=== PATIENT | female | born 1990 | race Caucasian/White ===

== ENCOUNTER → 2020-05-14 17:17 | Outpatient (CLI) | payer OTHER, SELFPAY ==
[2020-05-14 20:54] LABS: Urine N gonorrhoeae NOT DETECTED
[2020-05-14 21:00] LABS: Urine Chlamydia NOT DETECTED
== END ==
PROVIDERS: PCP Family Medicine; Visit Provider Specialist
DX: Z34.81 Encounter for supervision of other normal pregnancy, first trimester (principal); Z3A.09 9 weeks gestation of pregnancy
CPT/HCPCS: 87491; 87591

== ENCOUNTER → 2020-07-16 15:48 | Outpatient (CLI) | payer OTHER, SELFPAY ==
[2020-07-16 16:12] LABS: Add Manual Diff / Slide Review NO; Basophils Absolute Auto 100 /uL (0-100); Basophils Percent Auto 0.7 % (0-2); Eosinophils Absolute Auto 100 /uL (0-450); Eosinophils Percent Auto 1.1 % (2-4); Hemoglobin 12.6 g/dL (12.0-16.0); Lymphocytes Absolute Auto 1500 /uL (1100-4500); Lymphocytes Percent Auto 13.3 % (25-40); Mean Corpuscular HGB Conc 33.1 % (30-36); Mean Corpuscular Hemoglobin 30.5 PG (26-34); Mean Corpuscular Volume 91.9 fL (80-100); Monocytes Absolute Auto 1000 /uL (0-900); Monocytes Percent Auto 8.9 % (3-14); Neutrophils Absolute Auto 8600 /uL (1500-7000); Platelet Count 407 X10^3/uL (150-400); Red Blood Cell Count 4.14 X10^6/uL (4.0-5.2); Red Cell Distribution Width 13.4 % (11.6-14.8); White Blood Cell Count 11.3 X10^3/uL (4.5-11.0)
[2020-07-16 20:07] LABS: Appearance Urine UA CLEAR; Bilirubin Urine UA NEGATIVE (NEGATIVE); Color Urine UA YELLOW; Glucose Urine UA NEGATIVE (Negative); Ketones Urine UA NEGATIVE (NEGATIVE); Leukocyte Esterase Urine UA NEGATIVE (NEGATIVE); Nitrite Urine UA NEGATIVE (Negative); Occult Blood Urine UA NEGATIVE (Negative); Protein Urine UA NEGATIVE (Negative); Urobilinogen Urine UA 0.2 E.U./dL (0.2)
[2020-07-17 04:36] LABS: RPR Screen Non Reactive (Non Reactive)
[2020-07-17 07:17] LABS: Varicella IgG Antibody 958 index (Immune >165)
[2020-07-19 17:17] LABS: Rubella Antibody IgG 36.7 IU/mL (>15)
[2020-07-19 17:30] LABS: HIV 1 & 2 Ab/Ag 4th Gen Combo NEGATIVE (NEGATIVE); Hep C Virus Ab w/Reflex Quant NEGATIVE s/c (NEGATIVE); Hepatitis B Surface Antigen NEGATIVE s/c (NEGATIVE)
[2020-07-19 20:11] LABS: AFP, Serum 58.3 ng/mL (.); Calc Gestational Age Ultrasound (.); Estriol, Free 1.35 ng/mL (.); Inhibin A, MoM 0.82 (.); Maternal Ethnicity Caucasian (.); Maternal Weight 146 lbs (.); Number of Fetuses No (.); OSBR Risk 1 IN 4529 (.); Results Report (.); Test Results *Screen Negative* (.); hCG, MoM 0.97 (.); hCG, Serum 28239 mIU/mL (.)
== END ==
PROVIDERS: PCP Family Medicine; Referring Provider Specialist; Visit Provider Specialist
DX: Z34.82 Encounter for supervision of other normal pregnancy, second trimester (principal); Z3A.18 18 weeks gestation of pregnancy
CPT/HCPCS: 36415; 80055; 81003; 82105; 82677; 84702; 86336; 86787; 86803; 86850; 86900; 86901; 87086; 87389

== ENCOUNTER → 2020-08-14 07:44 | Outpatient (CLI) | payer OTHER, SELFPAY ==
--- NOTE | 2020-08-14 07:45 | DI.US.S_ITS ---
PROCEDURE: US OB >= 14 WEEKS FETUS INDICATIONS: 20 week anatomy scan OUTSIDE/PRIOR DATING DATA: Last menstrual period (LMP): 03/12/20. LMP-based estimated date of delivery (FIDENCIO): 12/17/20 . First dating scan (date and location): 05/03/20, by Dr. Pedersen . Estimated date of delivery (FIDENCIO) from first dating scan: 12/19/20 . TECHNIQUE: Real-time scanning was performed of the fetus, with image documentation and biometric measurements. Endovaginal scanning: Not needed COMPARISON: [facility], , OB >= 14 WEEKS FETUS, 07/16/2020, 15:37. FINDINGS: General: A single living intrauterine gestation is present. Presentation: Breech. Placenta: Placental position is anterior , without previa. Amniotic fluid index: 15.2 cm, normal range is 5-24 cm. heart rate: 160 beats per minute. Maternal cervical canal: 3.9 cm long. Normal lower limit is 2.5 cm. Report any funneling of internal cervical os: % of canal length, shape (U or V), width or any U-shaped funneling. biometrics: Biparietal diameter: 5.2 cm, 21 weeks 6 days Head circumference: 19.6 cm, 21 weeks 6 days Abdominal circumference: 17.0 cm, 22 weeks 0 days Femur length: 3.7 cm, 21 weeks 5 days Estimated gestational age from initial scan: 21 weeks 6 days Composite gestational age from present scan: 21 weeks 6 days Estimated weight and percentile: 457 g, 44th percentile Measurement variability for biometric dating: +/- 7 days from 14 weeks to 15 weeks 6 days gestation, +/- 10 days from 16 weeks to 21 weeks 6 days gestation, +/- 2 weeks from 22 weeks to 27 weeks 6 days gestation, +/- 3 weeks for 28 weeks gestation or later. weight reference: 4500 g or EFW >90/95% is considered macrosomia or large for gestational age. EFW <10% is small for gestational age. EFW 5% or less is considered intra-uterine growth restriction. Anatomic survey: Neuro: Ventricles are non-dilated at less than 10 mm. Cisterna magna is normal at 3-11 mm. Cerebellum is normal in size and morphology. Nuchal skin fold: Normal at less than 6 mm between 14-21 weeks gestational age. Face: Nose and lips, facial profile are normal. Spine: No evidence for spina bifida. Heart: 4-chambered heart is present, with normal ventricular outflow tracts. Diaphragm: Diaphragm is intact. Stomach: Left-sided stomach is present. Kidneys: No hydronephrosis. Normal is less than 5 mm in 2nd trimester, less than 7 mm in 3rd trimester. Cord: 3-vessel cord has orthotopic insertion. Bladder: Normal in size. Extremities: All 4 extremities identified. IMPRESSION: Breech presentation, appropriate interval growth, no anomaly seen. The delivery date is projected to be centered on 12/19/20, +/-5 days. Dictated by: Lionel Norton M.D. on 08/14/2020 at 12:28 Approved by: Lionel Norton M.D. on 08/14/2020 at 12:36
== END ==
PROVIDERS: PCP Family Medicine; Referring Provider Specialist; Visit Provider Specialist
DX: Z34.82 Encounter for supervision of other normal pregnancy, second trimester (principal); Z3A.21 21 weeks gestation of pregnancy
CPT/HCPCS: 76811

== ENCOUNTER → 2020-10-10 11:35 | Outpatient (CLI) | payer OTHER, SELFPAY ==
[2020-10-10 14:17] LABS: Hemoglobin 10.8 g/dL (12.0-16.0)
[2020-10-10 14:34] LABS: GTT (PREG) 1 Hour PP 50gm Dose 103 mg/dL (76-139)
== END ==
PROVIDERS: Referring Provider Specialist; Visit Provider Specialist
DX: Z34.82 Encounter for supervision of other normal pregnancy, second trimester (principal); Z3A.24 24 weeks gestation of pregnancy
CPT/HCPCS: 36415; 82950; 85014; 85018

== ENCOUNTER → 2020-11-16 15:31 | Outpatient (CLI) | payer OTHER, SELFPAY ==
[2020-11-17 14:08] LABS: Strep Grp B PCR NEG for Grp B Strep
== END ==
PROVIDERS: Visit Provider Specialist
DX: Z34.03 Encounter for supervision of normal first pregnancy, third trimester (principal); Z3A.36 36 weeks gestation of pregnancy
CPT/HCPCS: 87653

== ENCOUNTER 2020-12-17 16:14 | Inpatient (IN) | payer OTHER, SELFPAY ==
[2020-12-17] MEDS: LACTATED RINGERS 1,000 ML 100 ML IV ×2 (17:00→18:27)
[2020-12-17 17:43] VITALS: BP 134/67
[2020-12-17 17:44] LABS: Add Manual Diff / Slide Review NO; Basophils Absolute Auto 100 /uL (0-100); Basophils Percent Auto 0.6 % (0-2); Eosinophils Absolute Auto 0 /uL (0-450); Eosinophils Percent Auto 0.2 % (2-4); Hematocrit 34.2 % (36-46); Hemoglobin 11.2 g/dL (12.0-16.0); Lymphocytes Absolute Auto 1500 /uL (1100-4500); Lymphocytes Percent Auto 8.1 % (25-40); Mean Corpuscular HGB Conc 32.8 % (30-36); Mean Corpuscular Hemoglobin 26.3 PG (26-34); Mean Corpuscular Volume 80.3 fL (80-100); Monocytes Absolute Auto 1700 /uL (0-900); Monocytes Percent Auto 9.5 % (3-14); Neutrophils Absolute Auto 14900 /uL (1500-7000); Neutrophils Percent Auto 81.6 % (50-75); Platelet Count 495 X10^3/uL (150-400); Red Blood Cell Count 4.26 X10^6/uL (4.0-5.2); Red Cell Distribution Width 15.5 % (11.6-14.8); White Blood Cell Count 18.3 X10^3/uL (4.5-11.0)
[2020-12-17 18:35] LABS: COVID19 - ADMIT (NP swab/PCR) Negative (Negative)
--- NOTE | 2020-12-17 19:02 | PM.OBHP.1 ---
OB HPI Date/Time Date of admission: 12/17/20 Date Patient Seen: 12/17/20 Time Patient Seen: 19:02 History of Present Condition Chief complaint: : 3 Para: 0 Estimated Date of Delivery: 12/17/20 Estimated Gestational Age (weeks): 40 Narrative: Cinda Douglas is a 30 year old female admitted in active labor History of Present care: good care, initiated at week # (13), number of visits (12) and pounds weight gain (53) Dating criteria: LMP confirmed by 1st trimester US Ultrasounds: normal mid trimester US Obstetrical complications: none Medical complications: none Preadmission Labs Blood type: A (+) positive -: Antibody screen: negative, GBS status: negative, HBsAG: negative, HIV: negative and RPR/VDLR: negative -: Chlamydia screen: not detected and Gonorrhea screen: not detected -: Rubella: immune and Varicella: immune HCAB: negative Quad screen: Normal 1 hr GTT: 103 Evaluation Evaluation Baseline heart rate: 135 Variability: Moderate (11-25) monitor accelerations: Present monitor decelerations: Absent Contraction Frequency (minutes): 3 Uterine Contraction Intensity: Strong/Firm Category of Tracing: Reactive Status: Category l Cervical dilation (cm): 4 Cervical effacement (%): 80 station: -2 Laboratory results: Laboratory Tests 12/17/20 12/17/20 12/17/20 16:22 17:00 17:00 WBC 18.3 H RBC 4.26 Hgb 11.2 L Hct 34.2 L MCV 80.3 MCH 26.3 MCHC 32.8 RDW 15.5 H Plt Count 495 H Neut % (Auto) 81.6 H Lymph % (Auto) 8.1 L [place] % (Auto) 9.5 Eos % (Auto) 0.2 L Baso % (Auto) 0.6 Neut # (Auto) 65615 H Lymph # (Auto) 1500 [place] # (Auto) 1700 H Eos # (Auto) 0 Baso # (Auto) 100 SARS-CoV-2 (PCR) Negative Blood Type A Positive Antibody Screen Negative PFSH Medical History (Updated 06/05/20 @ 10:59 by Miracle Tinoco RN) Eczema (2004) Missed ab (~11/2019) Surgical History (Updated 03/04/20 @ 09:25 by Miracle Tinoco RN) Anesthesia Status post appendectomy (09/14/07) [place] teeth extracted Family History (Updated 06/05/20 @ 11:09 by Miracle Tinoco, OLIVER) Father No problems noted. Mother Prior miscarriage with , antepartum Grandfather Lung cancer Smoker Grandmother No problems noted. 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) current occupational exposures/hazards: No special virgilio needs: No Smoking Status: Never smoker second hand exposure: No alcohol intake: former (pre-) substance use type: marijuana (former - stopped) Meds Home Medications and Allergies Home Medications Medication Instructions Recorded Confirmed Type prenat.vits,catarina,[id number] 1 tab PO DAILY 11/16/19 12/17/20 History ondansetron 4 mg disintegrating 4 mg PO Q8H PRN #30 tab 10/29/20 12/13/20 Rx tablet Allergies Allergy/AdvReac Type Severity Reaction Status Date / Time No Known Drug Allergies Allergy Verified 12/17/20 17:50 Review of Systems Review of Systems Narrative: Patient denies headaches, scotomata, epigastric pain. Good movement. No leakage of fluid. ROS: Yes All systems reviewed with the patient and are negative except as otherwise documented Exam Vital Signs (past 8 hours): Blood pressure 104/58, pulse 104 temperature 36? point- 12/17/20 17:43 Blood Pressure 134/67 Narrative Exam Narrative: HEENT exam within normal limits. Lungs are clear to auscultation percussion. Heart is regular rate and rhythm no S3-S4 or murmurs. Abdomen is gravid. Fetus is vertex. Extremities without edema and nontender. Objective Labs Result Diagrams: 12/17/20 17:00 Labs: Laboratory Results - last 24 hr 12/17/20 12/17/20 12/17/20 16:22 17:00 17:00 WBC 18.3 H RBC 4.26 Hgb 11.2 L Hct 34.2 L MCV 80.3 MCH 26.3 MCHC 32.8 RDW 15.5 H Plt Count 495 H Neut % (Auto) 81.6 H Lymph % (Auto) 8.1 L [place] % (Auto) 9.5 Eos % (Auto) 0.2 L Baso % (Auto) 0.6 Neut # (Auto) 05548 H Lymph # (Auto) 1500 [place] # (Auto) 1700 H Eos # (Auto) 0 Baso # (Auto) 100 SARS-CoV-2 (PCR) Negative Blood Type A Positive Antibody Screen Negative Assessment and Plan Assessment and Plan Assessment and Plan narrative: 40 week gestation primary but in the early labor. Patient is requesting epidural for pain control. Plan is for vaginal delivery.
--- NOTE | 2020-12-17 19:16 | PM.AN.REGBLK ---
Regional Block Pre-procedure Procedure: Continuous Lumbar Epidural for L&D Attending OB provider: Dafne Pedersen PM/SAMANTHA narrative: term labor, no complications Hx: No personal or family history of anesthesia problems. ASA Class: II Labs: Hct 34.2 % (36-46) L 12/17/20 17:00 Plt Count 495 X10^3/uL (150-400) H 12/17/20 17:00 Medications: Current Medications Generic Name Dose Route Start Last Admin Trade Name Freq PRN Reason Stop Dose Admin Calcium Carbonate 1,000 mg 12/17/20 16:21 Calcium Carbonate 500 Mg Tab PO Q2HR PRN Dyspepsia Diphenhydramine HCl 25 mg 12/17/20 17:05 Diphenhydramine 50 Mg/Ml Vial IV Q10M PRN Pruritis Fentanyl 100 mcg 12/17/20 16:21 Fentanyl 100 Mcg/2 Ml Inj IV Q1H PRN Pain, Severe (7-10) Lactated Ringer's 1,000 mls @ 100 mls/hr 12/17/20 16:30 12/17/20 18:27 Lactated Ringers IV 100 mls/hr CONT MILY Administration FENT 2MCG/ML BUPIV 0.125% EPI 200 mcg in 100 mls @ 6 mls/hr 12/17/20 17:15 Fentanyl/Bupiv/Ns 2mcg/Ml - 0.125% EPIDURAL CONT MILY Naloxone HCl 0.2 mg 12/17/20 16:21 Naloxone 0.4 Mg/Ml Vial IV Q2MIN PRN Opiate Reversal Ondansetron HCl 4 mg 12/17/20 16:21 Ondansetron 4 Mg/2 Ml Inj IV Q4HR PRN Nausea And Vomiting Allergies: Allergies Allergy/AdvReac Type Severity Reaction Status Date / Time No Known Drug Allergies Allergy Verified 12/17/20 17:50 Procedure Insertion date: 12/17/20 Insertion time: 18:50 Prep/Local: betadine x3 and 1% lidocaine Interspace: L2-3 Patient position: sitting Needle: 18 gauge Hustead (CSE: 27g Pencan through Hustead. Clear CSF. 1mL 0.25% bupiv) Loss of resistance with: saline CLARA at (cm): 5 Catheter placed at SKIN (cm): 10 Catheter in SPACE (cm): 5 Insertion: No CSF, No Blood, No Paresthesia with insertion, No Paresthesia with injection and No Test dose reaction Initial Medications TEST DOSE time: 18:51 TEST DOSE: 1.5% lidocaine with epinephrine 1:200k (mL): 3 BOLUS DOSE time: 18:57 BOLUS DOSE (mL): 3 BOLUS DOSE med: other (infusate) Infusion INFUSION: 0.125% bupivacaine and with fentanyl 2 mcg/mL Initial rate (mL/hr): 8 Subsequent interventions: 03:40 to OR for emergent CS. 15mL 2% lidocaine to epidural en route to OR. Good block Post-procedure Anesthesia time START: 18:40 Anesthesia time END: 03:40
--- NOTE | 2020-12-18 | PATH_ITS ---
[facility] Accession Number: [id number] . 01 Material submitted: . placenta - PLACENTA . 01 Clinical history: . . 02 Diagnosis: Placenta, Delivery: Placenta Parenchyma: Weight 797 grams. Mild to moderate inter- and intravillous fibrin is present. Variably mature chorionic villi. Focal, possible villitis present. Rare calcifications present. Focal areas of disruption by gross examination, suggestive of possible incomplete placenta. . Membranes: Attach at the disc margin for 40% and attach circumvallate for 60%. Chorioamnionitis is present. . Umbilical Cord: Eccentically inserted. 14.5 cm in length. Three vessels present. Funisitis present. MRV 12/21/2020 1443 Local . 02 Electronically signed: . Surekha Jimenez MD, Pathologist NPI- [id number] . 01 Gross description: . The specimen is received in formalin, labeled placenta and consists of a 797-gram, 20.0 x 18.0 x 7.0 cm placenta. The eccentrically inserted gomez-white umbilical cord measures 14.5 cm in length by 1.5 cm in diameter and displays three vessels on cut surface. The gomez-pink translucent membranes are disrupted and attach at the disc margin for 40% and circumvallate for 60%. The surface is grullon-purple and slightly green tinged with normal to engorged vessels. The cotyledons are intact with focal areas of disruption and sectioned to reveal pink-red cut surfaces with no lesions identified. Respiratory Therapist Assistant sections are submitted. . A1: umbilical cord. A2: membrane rolls. A3-A6: full-thickness placenta, bisected sections. ([id number]) /MRV 12/19/2020 1447 Local . 02 Pathologist provided ICD-10: O43.90 . 02 CPT . 623290 Performed at: 01 [facility] [address] [place] [address], [place], [place] [id number] MD Vinay Cheng MD Phone: [phone] Performed at: [facility] [address] [place], [place] [id number] MD Cailin Rios MD Phone: [phone]
[2020-12-18] MEDS: FENT 2MCG/ML BUPIV 0.125% EPI 200 MCG/100 ML PLAST..BAG 6 MCG EPIDURAL (01:06)
[2020-12-18] MEDS: LACTATED RINGERS 1,000 ML 100 ML IV ×2 (02:33→06:58)
--- NOTE | 2020-12-18 03:19 | PM.PREOP ---
Pre-operative Note COVID-19 COVID-19 status: Negative Result date/Date tested (Pos, Neg/Pending): 12/17/20 Interval Note History & Physical reviewed/Exam performed by Physician: Yes Changes to H&P: Yes H&P completed within 30 days and has changed as indicated here:: intolerance of labor
--- NOTE | 2020-12-18 03:22 | PM.OBPNLAB ---
Date/Time Date Patient Seen: 12/18/20 Time Patient Seen: 03:22 Pain Control Pain control: epidural Pelvic Exam Dilation (cm): 6 Effacement (%): 80 station: -2 Contractions Contractions on admission: regular Monitor mode: External Pitocin rate (mU/min): 0 Contraction frequency (min): 2 Contraction duration (min): 1 Contraction pattern: Regular Contraction intensity: Strong/Firm Status status: Category ll Heart Rate Baseline: 150 Monitor Accelerations: Periodic Monitor Decelerations: Late and Recurrent Monitor Variability: Moderate Assessment and Plan Assessment: other ( intolerance of labor with minimal progress) Plan: (Urgent)
[2020-12-18] MEDS: CEFAZOLIN 2 GM/100 ML FROZ.PIGGY IV (03:41)
--- NOTE | 2020-12-18 04:12 | SUR.OPER ---
Supine on Padded OR bed, head on pillow, safety belt at thigh, arms secured on padded arm boards at <90 degrees abduction. Bump under right buttock. Legs uncrossed with pillow under knees, gel pad to heels, tape over blanket to lower legs.
--- NOTE | 2020-12-18 04:22 | SUR.OPER ---
VIABLE FEMALE INFANT DELIVERED AT 0355. CORD BLOOD AND PLACENTA TO OB WITH RN.
[2020-12-18 04:40] VITALS: BP 92/73; PULSE 128; RESP 14; TEMP 37.7; O2SAT 99
[2020-12-18 04:45] VITALS: BP 126/78; PULSE 116; RESP 10; O2SAT 98
--- NOTE | 2020-12-18 04:46 | PM.OBCS.1 ---
Operative Date/Time/Diagnoses Date of procedure: 12/18/20 Time of procedure: 04:46 Pre-op diagnosis: intolerance of labor Post-op diagnosis: other (Probable chorioamnionitis) Procedure & Clinicians Procedure: Primary low-transverse section Same procedure as scheduled: Yes Indications: intolerance of labor Surgeon: Dafne Pedersen Click Yes if Unassisted: Yes Anesthesia Type: Epidural Operative Notes Findings: Normal uterus, tubes, ovaries. Foul smelling amniotic fluid. Viable female infant weighing 8 lb 2 oz with Apgars of 7 and 9 Closure Type: primary Specimen(s): cord blood and placenta Intraoperative meds administered: Methergine and Pitocin Applied: Catheter (Velarde) Estimated Blood Loss (mL): 450 Blood products transfused: none Complications: none D Hanis Baby 1: Infant Gender: Female Presentation: vertex Position: Right Occiput Anterior Placental Delivery Description: Expressed Cord Vessel Description: 3 Vessels score (1 min): 7 score (5 min): 9 weight: 8 lb 1.6 oz Narrative: The patient was brought to the operating room where she underwent bolus of her epidural for anesthesia. She was placed in a supine position with a left lateral tilt. A Velarde catheter was in place. Pulsatile stockings were placed and functional throughout the case. 2 g of Ancef were given IV prior to the incision. Warming was in place. The patient was prepped and draped in usual sterile fashion. A low transverse incision was made with a scalpel and the incision was carried down to the fascial layer which was incised transversely with scissors. The midline attachments are superiorly and inferiorly. Some bleeding was controlled Bovie. The rectus muscles were in the midline and the peritoneal incision was made with no damage to internal structures. The peritoneum was incised and superiorly and inferiorly. The incision was stretched with the surgeon and personal assistant placing traction. Bladder blade was placed and a bladder flap was developed and the bladder held away from the lower uterine segment. An incision was made in the uterus with the scalpel and the incision was extended with stretching. There was particulate meconium fluid that had a foul odor. The head was elevated out of the abdomen and with fundal pressure by the personal assistant the baby was delivered. The was handed off to the warmer. A segment of cord was saved for cord pH but not run. Cord blood was collected. The placenta delivered spontaneously with traction. The uterus was cleaned with clean laps. The uterine incision was closed in 2 layers of 0 chromic suture the first a running locking layer the second an imbricating layer. The bladder peritoneum was repaired with 2-0 Vicryl suture. The gutters were cleaned of any remaining fluids and ovaries and tubes were observed to be normal. Adequate hemostasis was noted. The perineum was closed with 2-0 Vicryl suture. The fascia layer was closed with 0 Vicryl suture with 2 stitches. The incision was irrigated copiously and adequate hemostasis noted. The incision was closed with interrupted 3-0 Vicryl sutures and then a subcuticular stitch of 4-0 Vicryl suture. Steri-Strips were placed. The uterus was massaged to remove any clots. The patient went to recovery room in good condition. Counts of instruments and sponges were correct. Post-operative Condition: stable Disposition: other ( center) Aftercare: routine postop (IV antibiotics for probable chorioamnionitis)
[2020-12-18] MEDS: ACETAMINOPHEN IV 1,000 MG/100 ML VIAL 400 MG IV (04:48)
[2020-12-18 04:50] VITALS: BP 135/73; PULSE 116; RESP 13; O2SAT 100
[2020-12-18 04:55] VITALS: BP 126/76; PULSE 110; RESP 20; O2SAT 98
[2020-12-18 05:05] VITALS: BP 124/76; PULSE 105; RESP 12; TEMP 37; O2SAT 99
--- NOTE | 2020-12-18 05:16 | SUR.PHASEI ---
Addendum entered by Rochelle Smith R.N. 12/18/20 05:20: IV with 30 units pitocin received from OR. Con't in PACU and will finish when in [facility]. Original Note: Received to PACU after epidural anesthesia. Pt awake and alert. C/O abdominal pain. Report received from Dr eNlson and OLIVER Aleman. Pt treated with Ofirmev with good result. Pain remains 4/10, pt states pain is tolerable and pt is able to doze. Nausea subsided prior to discharge from PACU. Report called to OLIVER Chiu. Order for toradol awaiting verification from pharmacy. Pt transferred to [facility] by OLIVER Aleman and terence Caldwell.
[2020-12-18] MEDS: KETOROLAC 30 MG/ML VIAL IV ×3 (06:58→18:28)
[2020-12-18] MEDS: CLINDAMYCIN 900 MG/50 ML PIGGYBACK 50 MG IV (07:04)
[2020-12-18] MEDS: GENTAMICIN 300 MG in SODIUM CHLORIDE 0.9% 100 ML 107.5 ML IV (08:19)
[2020-12-18] MEDS: DOCUSATE 250 MG CAPSULE PO (09:10)
[2020-12-18] MEDS: AMPICILLIN 2,000 MG in SODIUM CHLORIDE 0.9% 100 ML 200 ML IV ×2 (10:29→18:36)
[2020-12-18] MEDS: LANOLIN OINT 7 GM 1 APPLIC TOP (18:29)
[2020-12-19] MEDS: KETOROLAC 30 MG/ML VIAL IV (00:43)
[2020-12-19] MEDS: AMPICILLIN 2,000 MG in SODIUM CHLORIDE 0.9% 100 ML 200 ML IV ×3 (00:44→12:05)
[2020-12-19] MEDS: ACETAMINOPHEN 325 MG TABLET 650 MG PO ×2 (06:39→12:09)
[2020-12-19] MEDS: IBUPROFEN 600 MG TABLET PO ×2 (06:39→12:09)
[2020-12-19 06:52] LABS: Add Manual Diff / Slide Review NO; Basophils Absolute Auto 0 /uL (0-100); Basophils Percent Auto 0.3 % (0-2); Eosinophils Absolute Auto 100 /uL (0-450); Eosinophils Percent Auto 0.5 % (2-4); Hematocrit 26.2 % (36-46); Hemoglobin 8.5 g/dL (12.0-16.0); Lymphocytes Absolute Auto 1000 /uL (1100-4500); Lymphocytes Percent Auto 6.3 % (25-40); Mean Corpuscular HGB Conc 32.5 % (30-36); Monocytes Absolute Auto 1000 /uL (0-900); Monocytes Percent Auto 6.4 % (3-14); Neutrophils Absolute Auto 14200 /uL (1500-7000); Neutrophils Percent Auto 86.5 % (50-75); Platelet Count 389 X10^3/uL (150-400); Red Blood Cell Count 3.28 X10^6/uL (4.0-5.2); Red Cell Distribution Width 15.5 % (11.6-14.8); White Blood Cell Count 16.3 X10^3/uL (4.5-11.0)
--- NOTE | 2020-12-19 07:24 | PM.OBPN.1 ---
Subjective - OB Subjective Patient comments: incisional pain and tolerating diet baby status: doing well and nursing well Guild feeding status: exclusively breast feeding Date Patient Seen: 12/19/20 Time Patient Seen: 06:35 Exam Vital Signs (past 8 hours): BP 104/57, P107 T 36.4 Oxygen Delivery Method Room Air Narrative Exam Narrative: Abdomen soft, nontender. Uterus is firm, moderate tenderness. Dressing is dry. Mild lochia. Extremities without edema, nontender. Objective Labs Result Diagrams: 12/19/20 06:43 Labs: Laboratory Results - last 24 hr 12/19/20 06:43 WBC 16.3 H RBC 3.28 L Hgb 8.5 L Hct 26.2 L MCV 80.0 MCH 26.0 MCHC 32.5 RDW 15.5 H Plt Count 389 Neut % (Auto) 86.5 H Lymph % (Auto) 6.3 L [place] % (Auto) 6.4 Eos % (Auto) 0.5 L Baso % (Auto) 0.3 Neut # (Auto) 30150 H Lymph # (Auto) 1000 L [place] # (Auto) 1000 H Eos # (Auto) 100 Baso # (Auto) 0 Assessment & Plan Assessment and Plan (1) Delivery by section using transverse incision of lower segment of uterus: Status: Acute Plan day: 1 plan OB: routine postop care Comments: Patient is doing well. Gram stain of placental site negative. Time Spent With Patient Time: Total time spent is greater than 50% in coordination of care (as documented) at patient's floor/unit and/or counseling patient: Time with patient: less than 15 minutes
[2020-12-19] MEDS: DOCUSATE 250 MG CAPSULE PO ×2 (08:12→12:06)
[2020-12-19] MEDS: GENTAMICIN 300 MG in SODIUM CHLORIDE 0.9% 100 ML 107.5 ML IV (08:24)
[2020-12-19 11:49] VITALS: BP 113/63; PULSE 96; RESP 16; TEMP 36.3
[2020-12-19] MEDS: OXYCODONE IR 5 MG TABLET PO (12:06)
--- NOTE | 2020-12-19 14:58 | PM.OBDS.1 ---
Discharge Providers Provider Date of admission: 12/17/20 16:14 Discharge Date: 12/19/20 Consults: 12/17/20 16:21 Consult to Anesthesiology Urgent Comment: Consulting Provider: Anesthesiologist Reason for consultation: Epidural Has provider been notified: No 12/18/20 05:51 Consult to Quality Control Projectionist Routine Comment: Discharge provider: Dafne Pedersen MD Summary Hospital Course Date Patient Seen: 12/19/20 Time Patient Seen: 14:58 Diagnoses: 40 week gestation with intolerance of labor possible chorioamnionitis Hospital Course: Patient arrived on Labor and delivery in active labor. She received an epidural catheter for pain control. She had 1st stage arrest with intolerance of labor. She underwent a primary low-transverse section at which time she was found to have foul-smelling amniotic fluid but no other signs or symptoms of chorioamnionitis. Peripartum Data Infant Delivery Method: Section Procedures: Epidural catheter, Pitocin augmentation of labor, primary low-transverse section complications: none 1: Gender: Female Disposition of : home Discharge Diagnosis (1) Delivery by section using transverse incision of lower segment of uterus: Status: Acute Status at Discharge Cognitive/behavioral status at discharge: oriented Functional status at discharge: independent ambulation Overall status at discharge: patient is progressing back to baseline Time Spent with Patient Time attestation: Total time spent providing and/or coordinating discharge services: Time spent: Less than 30 minutes Objective Labs Result Diagrams: 12/19/20 06:43 Labs: Laboratory Results - last 24 hr 12/19/20 06:43 WBC 16.3 H RBC 3.28 L Hgb 8.5 L Hct 26.2 L MCV 80.0 MCH 26.0 MCHC 32.5 RDW 15.5 H Plt Count 389 Neut % (Auto) 86.5 H Lymph % (Auto) 6.3 L [place] % (Auto) 6.4 Eos % (Auto) 0.5 L Baso % (Auto) 0.3 Neut # (Auto) 25204 H Lymph # (Auto) 1000 L [place] # (Auto) 1000 H Eos # (Auto) 100 Baso # (Auto) 0 Exam Vital Signs (past 8 hours): Blood pressure 113/63, pulse of 96, temperature 36.3? Oxygen Delivery Method Room Air Narrative Exam Narrative: Abdomen is soft, nontender. Uterus is firm, at U, nontender. Dressing is clean, dry, intact. Mild lochia. Extremities without edema and nontender. Patient is Rh positive, rubella immune, she received Tdap in the 3rd trimester. Discharge Plan Discharge Plan Patient Disposition: Home Provider Discharge Comment: Patient has stool softener and iron that she will continue to take at home Discharge orders & Medications Prescriptions: New ibuprofen 600 mg Tablet 600 mg PO Q6HR PRN (Reason: Fever/Mild Pain (1-3)) Qty: 30 RF: 0 oxycodone 5 mg Tablet 5 mg PO Q4HR PRN (Reason: Pain, Moderate (4-6)) Qty: 30 RF: 0 Continued prenat.vits,catarina,[id number] Tablet 1 tab PO DAILY RF: 0 Discontinued ondansetron 4 mg tablet,disintegrating 4 mg PO Q8H PRN (Reason: nausea and vomiting) Qty: 30 RF: 4 Follow up/Referrals: Dafne Pedersen MD [Physician] - 1 Week (December 25, 10:45am with Dr Pedersen for an Aquacel removal) Diet/Activity/Treatments Diet: Regular Activity: Nothing in vagina or lifting over 20 lb for 6 weeks Skin/Wound/Dressing Care Report to your healthcare provider any signs of infection, such as:: chills, fever and increased pain Dressing: Leave dressing on until 1 week postop appointment Visit Report/Discharge Packet Stand Alone Forms: Discharge: Care
== END 2020-12-19 16:45 | disposition home or self-care (01) | DRG 788 ==
PROVIDERS: Admitting Provider Specialist; Referring Provider Specialist; Visit Provider Specialist
PROC: 10D00Z1 Extraction of Products of Conception, Low, Open Approach (ICD-10-PCS; CPT 59514; principal; 2020-12-18 03:40)
DX: O76 Abnormality in fetal heart rate and rhythm complicating labor and delivery (principal); Z3A.40 40 weeks gestation of pregnancy; Z37.0 Single live birth; Z20.822 Contact with and (suspected) exposure to COVID-19
CPT/HCPCS: 01967; 01968; 36415; 59050; 59510; 85025; 86850; 86900; 86901; 87070; 87075; 87077; 87147; 87186; 87205; 87635; G0379; J0131; J0290; J0690; J1100; J1885; J2274; J2405; J2704; J3010